=== PATIENT | female | born 1990 | race Caucasian/White ===

== ENCOUNTER 2025-08-10 15:51 | Outpatient (CLI) | payer OTHER, SELFPAY ==
[2025-08-10 21:58] LABS: Hematocrit* 42.4 % (33.0-51.0); Hemoglobin* 13.8 gm/dL (12.0-16.0); Immature Granulocytes Abs Auto 0.00 K/uL (0.00-0.30); Immature Granulocytes Pct Auto 0.0 %; Lymphocytes Absolute Auto 2.26 K/uL (0.90-2.90); Mean Corpuscular HGB Conc 33 gm/dL (32-36); Mean Corpuscular Hemoglobin 29 pg (26-34); Mean Corpuscular Volume 90 fL (80-100); RDW Coefficient of Variation % 12.3 % (11.5-15.5); Red Blood Count* 4.72 m/uL (4.00-5.20); White Blood Count* 7.28 K/uL (4.50-11.00)
[2025-08-10 22:01] LABS: Slide Review Reflex No
[2025-08-10 22:07] LABS: Albumin* 4.4 g/dL (3.3-5.0); Chloride* 99 mmol/L (96-114); Potassium* 4.1 mmol/L (3.6-5.1); Sodium* 136 mmol/L (135-149)
[2025-08-10 22:10] LABS: Alanine Aminotransferase* 14 U/L (4-35); Alkaline Phosphatase* 62 U/L (40-150); Anion Gap 9 mEq/L (7-15); Aspartate Amino Transferase* 25 U/L (12-35); Bilirubin Total* 0.4 mg/dL (0.1-1.5); Blood Urea Nitrogen* 16 mg/dL (5-24); Calcium* 9.5 mg/dL (8.4-10.6); Carbon Dioxide* 28 mmol/L (20-32); Creatinine* 0.9 mg/dL (0.5-1.5); Estimated Glomerular Filt Rate 86 ml/min; Glucose* 79 mg/dL (60-115); Total Protein* 7.3 g/dL (6.0-8.3)
== END 2025-08-10 15:52 | disposition home or self-care (01) ==
LOC: NPINS 15:52
PROVIDERS: PCP Family Medicine; Visit Provider Advanced Practice Midwife
DX: F43.23 Adjustment disorder with mixed anxiety and depressed mood (principal)
CPT/HCPCS: 80053; 84443; 85025